=== PATIENT | female | born 1995 | race Two or more races ===

== ENCOUNTER → 2018-09-19 | Outpatient (CLI) | payer OTHER ==
[2016-05-23 16:38] VITALS: BP 132/67
[~2018-09-19] MED LIST: FERR325T14 PO; HYDR-2761 PO; IBUP-1060 PO; PREN1TAB58 PO
--- NOTE | 2018-09-19 16:25 | KCIC ---
Ultrasound obstetrics greater than 14 weeks with transvaginal 09/19/2018 Clinical indication: Large for dates. COMPARISON: None Technique: Transabdominal imaging was performed. Transvaginal imaging was subsequently performed to better evaluate the intrauterine contents. Findings: There is a single intrauterine gestation in cephalic presentation. The placenta is anterior in location without evidence of placental previa. The cervix is not well visualized and sulci cervical length is not given. SHYAM measured 17.7 cm. Biometrical data is as follows: BPD = 7.7 cm, with a corresponding gestational age of 30 weeks 5 days. HC = 29.4 cm, with a corresponding gestational age of 32 weeks 3 days. AC = 20.4 cm, with a corresponding gestational age of 32 weeks 3 days. FL = 6.2 cm, with a corresponding gestational age of 32 weeks 1 days. Ratio of head circumference to abdominal circumference is 1.04. Overall, the estimated sonographic gestational age is 32 weeks 0 days for an estimated date of delivery of November 14, 2018. Estimated weight is 1926 g. heart rate is identified estimated at 136 bpm. The exam is not intended for anatomy survey. IMPRESSION: Single intrauterine gestation with estimated sonographic gestational age of 32 weeks 0 days and estimated delivery date of November 14, 2018. Electronically signed by: Trino Tong MD (09/19/2018 4:20 PM) [facility]
== END | disposition home or self-care (01) ==
LOC: KCIC US 12:03
PROVIDERS: ATTEND Family Medicine
DX: Z34.83 Encounter for supervision of other normal pregnancy, third trimester (principal); Z3A.32 32 weeks gestation of pregnancy
CPT/HCPCS: 76805; 76817

== ENCOUNTER 2019-04-11 04:23 | Emergency (ER) | payer SELFPAY ==
[~2019-04-11] VITALS: Ht 152.4 cm; Wt 99.8 kg
[~2019-04-11 04:23] MED LIST changes: +FAMO-63 PO; +ONDA4TAB12 PO; +TRAM50TA PO
[2019-04-11 04:30] VITALS: BP 155/71
[2019-04-11] MEDS ORDERED: ONDA4TAB7 PO (04:51)
[2019-04-11] MEDS ORDERED: FAMO20TA5 PO (04:51)
[2019-04-11] MEDS ORDERED: TRAM-48 PO (04:51)
--- NOTE | 2019-04-11 04:51 | PHYS DOC ---
Past Medical History Past Medical History: No Pertinent History Past Surgical History: No Surgical History Alcohol Use: Occasionally Drug Use: None, Marijuana Adult General Chief Complaint Chief Complaint: ABDOMINAL PAIN [facility] HPI Patient is a 23 year old female who presents with complaining of abdominal pain. Patient complaining of epigastric pain as a sharp pain with radiation to her back and nausea that with her up at 4 AM as a constant pain and rated her pain 10 over 10 that improved to 1/10 after arrival to ER. Patient states she had the same pain previously and was seen in this emergency room and diagnosed with cholelithiasis. Patient states she did not follow-up with surgeon and didn't get the prescription medication from her previous visit. Patient did not follow-up with recommended low-fat diet and had cheese burger last night. Review of Systems Review of Systems Constitutional: Denies fever or chills [] Eyes: Denies change in visual acuity, redness, or eye pain [] HENT: Denies nasal congestion or sore throat [] Respiratory: Denies cough or shortness of breath [] Cardiovascular: No additional information not addressed in HPI [] GI: Reports abdominal pain, nausea, denies vomiting, bloody stools or diarrhea [] : Denies dysuria or hematuria [] Musculoskeletal: Denies back pain or joint pain [] Integument: Denies rash or skin lesions [] Neurologic: Denies headache, focal weakness or sensory changes [] Endocrine: Denies polyuria or polydipsia [] All other systems were reviewed and found to be within normal limits, except as documented in this note. Allergies Allergies Allergies Coded Allergies Type Severity Reaction Last Updated Verified No Known Drug Allergies 05/22/16 No Physical Exam Physical Exam Constitutional: Well developed, well nourished, mild distress, non-toxic appearance. [] HENT: Normocephalic, atraumatic. Eyes: PERRLA, EOMI, conjunctiva normal, no discharge. [] Neck: Normal range of motion, no tenderness, supple, no stridor. [] Cardiovascular:Heart rate regular rhythm, no murmur [] Lungs & Thorax: Bilateral breath sounds clear to auscultation [] Abdomen: Bowel sounds normal, soft, no tenderness, no masses, no pulsatile masses. [] Skin: Warm, dry, no erythema, no rash. [] Back: No tenderness, no CVA tenderness. [] Extremities: No tenderness, no cyanosis, no clubbing, ROM intact, no edema. [] Neurologic: Alert and oriented X 3, no focal deficits noted. [] Psychologic: Affect normal, judgement normal, mood normal. [] Current Patient Data Vital Signs Vital Signs Date Time Temp Pulse Resp B/P (MAP) Pulse Ox O2 Delivery O2 Flow Rate FiO2 04/11/19 04:30 97.4 75 16 155/71 (99) 97 Room Air 97.4 EKG EKG [] Radiology/Procedures Radiology/Procedures [] Course & Med Decision Making Course & Med Decision Making Evaluation of patient in ER showed 23 year male patient with complaining of epigastric pain like her previous episodes of abdominal pain that improved after arrival to ER. Patient has history of cholelithiasis and did not follow up with the surgeon. Patient was advised to not eat greasy foods and follow-up with the surgeon. Dragon Disclaimer Dragon Disclaimer This electronic medical record was generated, in whole or in part, using a voice recognition dictation system. Departure Departure Impression: Primary Impression: Recurrent biliary colic Additional Impression: Cholelithiasis Disposition: 01 HOME, SELF-CARE (at 0448) Condition: IMPROVED Referrals: KIMBERLY STOCK MD (PCP) JANAE ESPAÑA MD Patient Instructions: Biliary Colic, Cholelithiasis Additional Instructions: Drink plenty of liquids Follow-up with on-call surgeon in 3-5 days Return to ER if not getting better Do not eat any greasy food Scripts Ondansetron Hcl (ZOFRAN) 4 Mg Tablet 1 TAB PO PRN Q6-8HRS for nausea, #12 TAB Prov: RON HONG MD 04/11/19 Tramadol Hcl (ULTRAM) 50 Mg Tablet 50 MG PO Q6HRS PRN for PAIN, #14 TAB 0 Refills Prov: RON HONG MD 04/11/19 Famotidine (FAMOTIDINE) 20 Mg Tablet 20 MG PO BID, #20 TAB Prov: RON HONG MD 04/11/19 Problem Qualifiers Additional Impression: Cholelithiasis Cholelithiasis location: gallbladder Cholecystitis presence: with cholecystitis Cholecystitis acuity: chronic Biliary obstruction: with bi liary obstruction Qualified Codes: K80.11 - Calculus of gallbladder with chronic cholecystitis with obstruction RON HONG MD Apr 11, 2019 04:51
== END 2019-04-11 04:55 | disposition home or self-care (01) ==
LOC: ER 04:23
DX: K80.11 Calculus of gallbladder with chronic cholecystitis with obstruction (principal); R11.0 Nausea
CPT/HCPCS: 99283

== ENCOUNTER 2021-08-29 13:05 | Emergency (ER) | payer SELFPAY ==
[~2021-08-29] VITALS: Ht 152.4 cm; Wt 85.5 kg
[~2021-08-29 13:05] MED LIST changes: +FAMO20TA5 PO; +ONDA4TAB7 PO; +TRAM-48 PO
[2021-08-29] MEDS ORDERED: KETOROLAC 15 MG/ML VIAL. IVP ONE (14:15)
[2021-08-29] MEDS ORDERED: diazePAM 5 MG TABLET PO ONE (14:15)
--- NOTE | 2021-08-29 14:15 | PHYS DOC ---
Past Medical History Past Medical History: No Pertinent History Past Surgical History: No Surgical History Smoking Status: Never Smoker Alcohol Use: Occasionally Drug Use: None, Marijuana General Adult EDM: Chief Complaint: BACK PAIN OR INJURY HPI: HPI: Patient is a 25 year old female patient presenting to the ED today from home with her . is doing most of the speaking. states patient had an epidural 4 years ago in this hospital while having a baby. states they stuck the epidural needle in the wrong place and they had to redo it. states patient has had intermittent episodes of back pain since then. states patient had another epidural 1-1/2 years ago for the of another baby with no issues. states at 3 AM this morning patient had increased 10 out of 10 bilateral low back pain, patient denies anything specific exacerbating or relieving her pain. states patient's pain is radiating to bilateral upper extremities and lower extremities making her bilateral upper extremities "freeze up". Patient denies any injuries. Denies any loss of bowel/bladder function. She has appears anxious and is hyperventilating. Patient denies any abdominal pain, nausea, vomiting, any chance she is . Review of Systems: Review of Systems: Constitutional: Denies fever or chills. [] Eyes: Denies change in visual acuity. [] HENT: Denies nasal congestion or sore throat. [] Respiratory: Denies cough or shortness of breath. [] Cardiovascular: Denies chest pain or edema. [] GI: Denies abdominal pain, nausea, vomiting, bloody stools or diarrhea. [] : Denies dysuria. [] Musculoskeletal: Reports bilateral low back pain radiating to bilateral upper and lower extremities Integument: Denies rash. [] Neurologic: Denies headache, focal weakness or sensory changes. [] Psychiatric: Reports hyperventilation Heart Score: C/O Chest Pain: N/A Risk Factors: Risk Factors: DM, Current or recent (<one month) smoker, HTN, HLP, family history of CAD, obesity. Risk Scores: Score 0 - 3: 2.5% MACE over next 6 weeks - Discharge Home Score 4 - 6: 20.3% MACE over next 6 weeks - Admit for Clinical Observation Score 7 - 10: 72.7% MACE over next 6 weeks - Early Invasive Strategies Allergies: Allergies: Allergies Coded Allergies Type Severity Reaction Last Updated Verified No Known Drug Allergies 05/22/16 No Physical Exam: PE: Constitutional: Well developed, well nourished, no acute distress, non-toxic appearance. [] HENT: Normocephalic, atraumatic, bilateral external ears normal, oropharynx moist, no oral exudates, nose normal. [] Eyes: PERRLA, EOMI, conjunctiva normal, no discharge. [] Neck: Normal range of motion, no tenderness, supple, no stridor. [] Cardiovascular:Heart rate regular rhythm, no murmur [] Lungs & Thorax: Bilateral breath sounds clear to auscultation [] Abdomen: Bowel sounds normal, soft, no tenderness, no masses, no pulsatile masses. [] Skin: Warm, dry, no erythema, no rash. [] Back: No tenderness, no CVA tenderness. [] Extremities: No tenderness, no cyanosis, no clubbing, ROM intact, no edema. [] Neurologic: Alert and oriented X 3, normal motor function, normal sensory function, no focal deficits noted. [] Psychologic: Flat affect, appears anxious, hyperventilating, holding her bilateral upper extremities in curled up position Current Patient Data: Vital Signs: Vital Signs Date Time Temp Pulse Resp B/P (MAP) Pulse Ox O2 Delivery O2 Flow Rate FiO2 08/29/21 13:25 98.2 104 22 119/81 (94) 97 Room Air 98.2 EKG: EKG: [] Radiology/Procedures: Radiology/Procedures: [] Course & Med Decision Making: Course & Med Decision Making Pertinent Labs and Imaging studies reviewed. (See chart for details) This is a 25-year-old female patient presenting to the ED today complaining of bilateral low back pain radiating to bilateral upper extremities, bilateral lower extremities, bilateral upper extremities freezing up, symptoms have been going on since 3 AM but they originally started 4 years ago after having an epidural. Patient is very anxious. She is hyperventilating. Patient is afebrile. CBC with a WBC of 11.8, CMP with potassium of 3.1, patient was given oral potassium replacement. UA is positive for infection patient was given Rocephin IV in the ED. Discharged with cipro I went to reexamine patient, I found her sitting comfortably with no signs of distress. She states she wants her IUD removed. Informed patient we do not remove IUDs in the ED for no good reason. I asked her why she wants the IUD removed, she states she does not feel comfortable having the IUD anymore. She states they have marriage issues with the current and she no longer wants this IUD in. She states they have been fighting for a while and this could be the source of some of her anxiety. Recommended they consider marriage counseling. Informed that she can follow-up with her [employer]OR or whoever placed the IUD and they can decide if they want to remove it or not Dragsd Disclaimer: Dragon Disclaimer: This electronic medical record was generated, in whole or in part, using a voice recognition dictation system. Departure Departure Impression: Primary Impression: Anxiety disorder due to general medical condition with panic attack Additional Impression: Pyelonephritis Disposition: 01 HOME / SELF CARE / HOMELESS Condition: STABLE Referrals: KIMBERLY STOCK MD (PCP) follow up next week Patient Instructions: Anxiety and Panic Attacks, Pyelonephritis, Adult Additional Instructions: Your evaluated in the emergency room, you are noted to have infection in your urine. We will put you on antibiotics. Take them as prescribed until completed. Consider getting help with relationship issues you have with your . [facility] [place] is available for this or any marriage counseling center. Follow-up with your [employer]OR if you need your IUD removed Scripts Ciprofloxacin Hcl (CIPRO) 500 Mg Tablet 1 TAB PO BID for 7 Days, #14 TAB 0 Refills Prov: GRAEME EDGAR APRN 08/29/21 GRAEME EDGAR APRN Aug 29, 2021 14:15
[2021-08-29 14:32] LABS: BASO # 0.1 x10^3/uL (0.0-0.2); BASO % 1 % (0-3); EOS # 0.1 x10^3/uL (0.0-0.7); EOS % 1 % (0-3); HEMATOCRIT 41.3 % (36.0-47.0); HEMOGLOBIN 14.2 g/dL (12.0-15.5); LYMPH # 1.4 x10^3/uL (1.0-4.8); LYMPH % 12 % (24-48); MEAN CORPUSCULAR HEMOGLOBIN 30 pg (25-35); MEAN CORPUSCULAR HGB CONC 34 g/dL (31-37); MEAN CORPUSCULAR VOLUME 88 fL (79-100); MONO # 1.2 x10^3/uL (0.0-1.1); MONO % 10 % (0-9); NEUT # 9.1 x10^3/uL (1.8-7.7); NEUT % 77 % (31-73); PLATELET COUNT 183 x10^3/uL (140-400); RED BLOOD COUNT 4.67 x10^6/uL (3.50-5.40); RED CELL DISTRIBUTION WIDTH 13.3 % (11.5-14.5); WHITE BLOOD COUNT 11.8 x10^3/uL (4.0-11.0)
[2021-08-29 14:44] LABS: BILIRUBIN,URINE NEGATIVE (NEG); CLARITY,URINE TURBID; COLOR,URINE AMBER; NITRITE,URINE POSITIVE (NEG); PH,URINE 7.5 (<5.0-8.0); PROTEIN,URINE >=300 mg/dL (NEG-TRACE)
[2021-08-29] MEDS ORDERED: KETOROLAC 15 MG/ML VIAL. IM ONE (14:45)
[2021-08-29 14:51] LABS: ALBUMIN 3.4 g/dL (3.4-5.0); ALBUMIN/GLOBULIN RATIO 0.9 (1.0-1.7); CALCIUM 8.2 mg/dL (8.5-10.1); CREATININE 0.7 mg/dL (0.6-1.0); GFR 100.4; TOTAL BILIRUBIN 0.9 mg/dL (0.2-1.0); TOTAL PROTEIN 7.2 g/dL (6.4-8.2)
[2021-08-29 14:59] LABS: BACTERIA,URINE MANY /HPF (0-FEW); RBC,URINE >40 /HPF (0-2); WBC,URINE TNTC /HPF (0-4)
[2021-08-29] MEDS ORDERED: POTASSIUM CHLORIDE 20 MEQ TABLET.ER. PO ONE (15:00)
[2021-08-29 15:01] LABS: U PREG PATIENT NEGATIVE (NEG)
[2021-08-29] MEDS ORDERED: LIDOCAINE 1% PF 2 ML VIAL. INJ ONE (15:30)
[2021-08-29] MEDS ORDERED: cefTRIAXone IM 1 GM VIAL IM ONE (15:30)
[2021-08-29] MEDS ORDERED: CIPR500T94 PO (16:23)
[2021-08-29 16:53] VITALS: BP 121/60
== END 2021-08-29 16:57 | disposition home or self-care (01) ==
LOC: ER 13:05
DX: N12 Tubulo-interstitial nephritis, not specified as acute or chronic (principal); F41.0 Panic disorder [episodic paroxysmal anxiety]
CPT/HCPCS: 36415; 80053; 81001; 81025; 85025; 87086; 96372; 99284; J0696; J1885; J3490